=== PATIENT | male | born 2005 | race Caucasian/White ===

== ENCOUNTER 2023-01-19 17:07 | Outpatient (CLI) | payer BC, SELFPAY ==
[2023-01-19 23:54] LABS: Chlamydia DNA Amplified* NOT DETECTED (No Detected); GC DNA Amplified* NOT DETECTED (No Detected)
== END 2023-01-19 17:08 | disposition home or self-care (01) ==
LOC: LKVREF 17:07
PROVIDERS: Visit Provider Nurse Practitioner Family
DX: R35.0 Frequency of micturition (principal)
CPT/HCPCS: 87491; 87591